=== PATIENT | female | born 1950 ===

== ENCOUNTER → 2017-12-04 13:06 | Outpatient (CLI) | payer MEDICARE, OTHER, SELFPAY | PROVIDERS: Family Provider Family Medicine; PCP Family Medicine; Visit Provider Family Medicine | DX: M85.851 Other specified disorders of bone density and structure, right thigh (principal); Z78.0 Asymptomatic menopausal state; F17.200 Nicotine dependence, unspecified, uncomplicated; M06.9 Rheumatoid arthritis, unspecified | CPT/HCPCS: 77080 ==

== ENCOUNTER → 2018-09-26 12:04 | Outpatient (CLI) | payer MEDICARE, OTHER, SELFPAY ==
--- NOTE | 2018-09-26 | DI.RAD.S_ITS ---
PROCEDURE: XR HAND LT MIN 3V INDICATIONS: BILAT MCP AND IP JOINT PAIN TECHNIQUE: 3 views of the hand(s) acquired. COMPARISON: None. FINDINGS: Bones: No acute fracture or dislocation. There is diffuse interphalangeal joint space narrowing. There is a questionable erosive lesion at the distal aspect of the middle phalanx of the left third digit. No other erosive lesions or foci periarticular osteopenia. There is likely a small accessory ossicle or a chronic non-unified fracture at the third MTP joint. Soft tissues: No suspicious soft tissue calcifications. IMPRESSION: 1. Interphalangeal joint space narrowing suggesting mild osteoarthritis. 2. Questionable erosive lesion of the bones which could be associated with erosive arthritis. Dictated by: Airam Arcos M.D. on 09/26/2018 at 12:46 Approved by: Airam Arcos M.D. on 09/26/2018 at 12:47
--- NOTE | 2018-09-26 | DI.RAD.S_ITS ---
PROCEDURE: XR HAND RT MIN 3V INDICATIONS: BILAT MCP AND IP JOINT PAIN TECHNIQUE: 3 views of the hand(s) acquired. COMPARISON: None. FINDINGS: Bones: No acute fracture or dislocation. There is mild, diffuse interphalangeal joint space narrowing. No bony erosions or periarticular osteopenia. Soft tissues: No suspicious soft tissue calcifications. IMPRESSION: Osteoarthritis. No findings to suggest erosive arthritis. Dictated by: Airam Arcos M.D. on 09/26/2018 at 12:48 Approved by: Airam Arcos M.D. on 09/26/2018 at 12:48
== END ==
PROVIDERS: Visit Provider Student in an Organized Health Care Education/Training Program
DX: M19.041 Primary osteoarthritis, right hand (principal); M25.541 Pain in joints of right hand; M25.542 Pain in joints of left hand
CPT/HCPCS: 73130

== ENCOUNTER → 2018-10-15 08:38 | Outpatient (CLI) | payer MEDICARE, OTHER, SELFPAY ==
--- NOTE | 2018-10-15 | DI.RAD.S_ITS ---
PROCEDURE: XR SHOULDER RT MIN 2V INDICATIONS: RT SHOULDER PAIN, H/O ROTATOR CUFF TECHNIQUE: 3 views of the shoulder were acquired. COMPARISON: None. FINDINGS: Bones: No fractures or dislocations. No suspicious bony lesions. Visualized ribs appear intact. Moderate acromial clavicular joint degeneration. Glenohumeral degenerative sclerosis and spurring. Mild calcific tendinitis noted Soft tissues: No suspicious soft tissue calcifications. IMPRESSION: Mild to moderate right shoulder joint degeneration. Calcific tendinitis. Dictated by: Jus Barrientos M.D. on 10/15/2018 at 9:37 Approved by: Jus Barrientos M.D. on 10/15/2018 at 9:38
== END ==
PROVIDERS: Visit Provider Student in an Organized Health Care Education/Training Program
DX: M25.511 Pain in right shoulder (principal); M19.011 Primary osteoarthritis, right shoulder; M75.31 Calcific tendinitis of right shoulder
CPT/HCPCS: 73030

== ENCOUNTER → 2020-07-30 18:46 | Outpatient (CLI) | payer MEDICARE, OTHER, SELFPAY ==
--- NOTE | 2020-07-30 18:48 | DI.MRI.S_ITS ---
PROCEDURE: MR CERVICAL SPINE WO CON INDICATIONS: RADICULOPATHY,CERVICAL REGION TECHNIQUE: Noncontrast sagittal T1 spin echo and T2 fast spin echo, sagittal STIR, foraminal oblique sagittal T2 fast spin echo, and axial gradient echo or T2 fast spin echo through the cervical spine. COMPARISON: [facility], CR, XR CERVICAL SPINE WITH FLEXION EXTENSION, 12/19/2018, 16:35. FINDINGS: Image quality: Excellent. Alignment and Curvature: Trace degenerative anterolisthesis of C7 on T1. Trace degenerative retrolisthesis of C6 on C7. Trace degenerative retrolisthesis of C5 on C6. Mild degenerative anterolisthesis of C3 on C4. Mild degenerative anterolisthesis of C2 on C3. Bone Marrow: Marrow demonstrates normal overall signal. Spinal Cord: Visualized spinal cord has normal size and signal. No cerebellar tonsillar herniation. Paraspinous Soft Tissues: No paravertebral masses. Prevertebral soft tissues are normal in thickness. C2-C3: Left C2-C3 facet is fused. Right facet hypertrophy. No central canal stenosis. No foraminal stenosis. C3-C4: Mild anterolisthesis of C3 on C4. Mild central posterior disc protrusion mildly indenting on the cord. Mild canal stenosis. AP diameter of the canal is 9 mm. Prominent bilateral facet hypertrophy. Bilateral uncovertebral joint hypertrophy. Moderate to severe right foraminal narrowing and severe left foraminal narrowing with bilateral foraminal C4 nerve root impingement. C4-C5: Short pedicles. Diffuse disc bulge with superimposed central posterior disc protrusion indenting on the ventral cord. Severe canal stenosis. AP diameter of the canal is 7 mm. Bilateral facet hypertrophy, prominent on the right. Bilateral uncovertebral joint hypertrophy. Severe right foraminal narrowing with foraminal right C5 nerve root impingement. Moderate to severe left foraminal narrowing with flattening deformity on the exiting left C5 nerve root. C5-C6: Short pedicles. Trace degenerative retrolisthesis of C5 on C6. Central posterior disc protrusion indenting on the ventral cord. Prominent ligament hypertrophy. Severe canal stenosis. AP diameter of the canal is 7 mm. Bilateral uncovertebral joint hypertrophy. Right facet hypertrophy. Moderate to severe right foraminal narrowing with impingement on the exiting right C6 nerve root. Mild left foraminal narrowing. C6-C7: Disc bulge abutting the cord. Mild canal stenosis. AP diameter of the canal is 9 mm. Moderate bilateral foraminal narrowing with flattening deformity on the exiting bilateral C7 nerve roots. C7-T1: Disc bulge. No canal stenosis. Bilateral facet hypertrophy. Marked right foraminal narrowing with impingement on the exiting right C8 nerve root. Moderate to severe left foraminal narrowing with flattening deformity on the exiting left C8 nerve root. IMPRESSION: 1. Extensive cervical spondylitic change. 2. Multilevel canal stenosis, mild at C3-C4, severe at C4-C5, severe at C5-C6, and mild at C6-C7. 3. Multilevel facet arthropathy. 4. Significant multilevel foraminal narrowing as described above. Dictated by: Abdias Hackett M.D. on 08/03/2020 at 9:35 Approved by: Abdias Hackett M.D. on 08/03/2020 at 9:50
== END ==
PROVIDERS: Referring Provider Pain Medicine Pain Medicine; Visit Provider Pain Medicine Pain Medicine
DX: M54.12 Radiculopathy, cervical region (principal); M48.02 Spinal stenosis, cervical region; M47.892 Other spondylosis, cervical region
CPT/HCPCS: 72141

== ENCOUNTER → 2022-01-03 14:46 | Outpatient (ROUT) | payer MEDICARE, OTHER, SELFPAY ==
[2022-01-03 14:53] LABS: Add Manual Diff / Slide Review NO; Basophils Absolute Auto 100 /uL (0-100); Eosinophils Absolute Auto 500 /uL (0-450); Eosinophils Percent Auto 5.9 % (2-4); Hematocrit 40.7 % (36-46); Hemoglobin 13.8 g/dL (12.0-16.0); Lymphocytes Absolute Auto 3000 /uL (1100-4500); Lymphocytes Percent Auto 36.5 % (25-40); Mean Corpuscular Hemoglobin 32.3 PG (26-34); Mean Corpuscular Volume 94.8 fL (80-100); Monocytes Absolute Auto 900 /uL (0-900); Monocytes Percent Auto 10.9 % (3-14); Neutrophils Absolute Auto 3700 /uL (1500-7000); Neutrophils Percent Auto 45.7 % (50-75); Platelet Count 340 X10^3/uL (150-400); Red Blood Cell Count 4.29 X10^6/uL (4.0-5.2); Red Cell Distribution Width 14.2 % (11.6-14.8); White Blood Cell Count 8.2 X10^3/uL (4.5-11.0)
== END ==
PROVIDERS: Visit Provider Internal Medicine
DX: R53.83 Other fatigue (principal); E78.5 Hyperlipidemia, unspecified; M06.9 Rheumatoid arthritis, unspecified; F17.210 Nicotine dependence, cigarettes, uncomplicated
CPT/HCPCS: 85025